=== PATIENT | female | born 1950 | race Caucasian/White ===

== ENCOUNTER → 2016-08-25 | Outpatient (CLI) | payer MEDICARE ==
[2016-08-25 11:26] LABS: HEMOGLOBIN 7.3 gm/dl (12.3-15.3); RED BLOOD COUNT 3.65 M/UL (4.00-5.10); WHITE BLOOD COUNT 6.3 K/UL (4.5-11.0)
== END ==
LOC: OPSV 09:30
PROVIDERS: Family Medicine
DX: D50.9 Iron deficiency anemia, unspecified (principal)
CPT/HCPCS: 36415; 36430; 85027; 86850; 86900; 86901; 86920; J7050; P9016

== ENCOUNTER → 2016-08-26 | Outpatient (CLI) | payer MEDICARE ==
[2016-08-26 15:04] LABS: WHITE BLOOD COUNT 7.4 K/UL (4.5-11.0)
[2016-08-26 15:09] LABS: HEMOGLOBIN 9.9 gm/dl (12.3-15.3); RED BLOOD COUNT 4.44 M/UL (4.00-5.10)
== END ==
LOC: LAB 14:16
PROVIDERS: Nurse Practitioner Family
DX: D50.9 Iron deficiency anemia, unspecified (principal)
CPT/HCPCS: 36415; 85027

== ENCOUNTER → 2016-10-29 | Outpatient (CLI) | payer MEDICARE ==
[2016-10-29 14:58] LABS: HEMOGLOBIN 9.9 gm/dl (12.3-15.3)
== END ==
LOC: LAB 14:06
PROVIDERS: Physician Assistant Surgical
DX: D64.9 Anemia, unspecified (principal)
CPT/HCPCS: 36415; 85014; 85018

== ENCOUNTER → 2020-06-26 | Outpatient (CLI) | payer MEDICARE ==
[~2020-06-26] MED LIST: ACID CONTROL150 MG PO; ALPRAZOLAM0.5 MG PO; BACTROBAN OINT22 GM EXT; CALCIUM 600 +1 EA10 PO; FERROUS GLUCON324 M1 PO; FORTEO 250250 MCG/ML SC; GLUCOPHAGE1000 MG PO; LEVOCETIRIZINE D5 MG PO; LEXAPRO10 MG PO; LOSARTAN POTASS25 MG PO; NORCO 10-325 T1 EACH PO; PANTOPRAZOLE SO20 MG PO; PERCOCET 10-321 EACH PO; RESTORIL 7.5 M7.5 MG PO; VITAMIN B-121000 MCG PO; VITAMIN D35000 UNI1 PO; ZOFRAN ODT 4 MG4 MG SL
== END ==
LOC: MAMO 15:19
DX: Z12.31 Encounter for screening mammogram for malignant neoplasm of breast (principal); Z78.0 Asymptomatic menopausal state
CPT/HCPCS: 77063; 77067

== ENCOUNTER → 2020-12-21 | Outpatient (CLI) | payer MEDICARE ==
[~2020-12-21] VITALS: Ht 154.9 cm; Wt 76.7 kg
== END ==
LOC: OPSV 13:57
DX: M80.08XA Age-related osteoporosis with current pathological fracture, vertebra(e), initial encounter for fracture (principal)
CPT/HCPCS: 96372

== ENCOUNTER → 2021-07-03 | Outpatient (CLI) | payer MEDICARE ==
[~2021-07-03] VITALS: Ht 154.9 cm; Wt 74.8 kg
== END ==
LOC: OPSV 14:00
DX: M80.08XA Age-related osteoporosis with current pathological fracture, vertebra(e), initial encounter for fracture (principal)
CPT/HCPCS: 96372

== ENCOUNTER → 2021-08-08 | Outpatient (CLI) | payer MEDICARE ==
[~2021-08-08] MED LIST changes: +FAMOTIDINE20 MG PO; +FLONASE; +PROLIA
[2021-08-08 11:04] LABS: HEMOGLOBIN 12.4 gm/dl (12.3-15.3); RED BLOOD COUNT 4.15 M/UL (4.00-5.10); WHITE BLOOD COUNT 7.2 K/UL (4.5-11.0)
[2021-08-08 11:24] LABS: BUN/CREATININE RATIO 17 (0-10)
== END ==
LOC: EDSTATUS 10:00 → OPSV2 10:00
PROVIDERS: Orthopaedic Surgery
DX: Z01.818 Encounter for other preprocedural examination (principal); M17.12 Unilateral primary osteoarthritis, left knee; E11.9 Type 2 diabetes mellitus without complications; R94.31 Abnormal electrocardiogram [ECG] [EKG]
CPT/HCPCS: 36415; 80048; 83036; 85027; 93005

== ENCOUNTER → 2021-08-21 | Outpatient (CLI) | payer MEDICARE ==
[~2021-08-21] MED LIST changes: +CYCLOBENZAPRINE10 MG PO; +ELIQUIS 2.5 MG2.5 MG PO
[2021-08-21 12:18] LABS: BUN/CREATININE RATIO 17 (0-10)
== END ==
LOC: LAB 10:52
PROVIDERS: Orthopaedic Surgery
DX: Z01.812 Encounter for preprocedural laboratory examination (principal)
CPT/HCPCS: 36415; 80048; 86850; 86900; 86901

== ENCOUNTER → 2021-09-09 | Outpatient (CLI) | payer MEDICARE | LOC: KOH-I 15:00 | DX: R22.42 Localized swelling, mass and lump, left lower limb (principal) | CPT/HCPCS: 93971 ==

== ENCOUNTER → 2021-11-14 | Outpatient (CLI) | payer MEDICARE | LOC: MAMO 11-05 13:30 | DX: Z12.31 Encounter for screening mammogram for malignant neoplasm of breast (principal); Z78.0 Asymptomatic menopausal state | CPT/HCPCS: 77063; 77067 ==

== ENCOUNTER → 2021-12-26 | Outpatient (CLI) | payer MEDICARE ==
[2021-12-26 12:43] LABS: HEMOGLOBIN 8.7 gm/dl (12.3-15.3); RED BLOOD COUNT 3.45 M/UL (4.00-5.10); WHITE BLOOD COUNT 7.2 K/UL (4.5-11.0)
[2021-12-26 13:02] LABS: BUN/CREATININE RATIO 17 (0-10)
[2021-12-27 08:14] LABS: HAPTOGLOBIN 146 mg/dL (42-346)
[2021-12-27 15:11] LABS: HEMATOCRIT 27.9 % (34.0-46.6)
== END ==
LOC: LAB 11:57
PROVIDERS: Internal Medicine Hematology & Oncology
DX: D64.9 Anemia, unspecified (principal); K90.9 Intestinal malabsorption, unspecified
CPT/HCPCS: 36415; 80053; 82607; 82728; 82747; 83010; 83540; 83550; 83615; 83921; 85025; 85045

== ENCOUNTER → 2022-01-08 | Outpatient (CLI) | payer MEDICARE | LOC: OPSV 13:00 | DX: M80.08XA Age-related osteoporosis with current pathological fracture, vertebra(e), initial encounter for fracture (principal) | CPT/HCPCS: 96372 ==

== ENCOUNTER → 2022-01-15 | Outpatient (CLI) | payer MEDICARE ==
[~2022-01-15] VITALS: Ht 157.5 cm; Wt 73.9 kg
== END ==
LOC: OPSV 11:57
DX: K90.9 Intestinal malabsorption, unspecified (principal)
CPT/HCPCS: 96365; J1756

== ENCOUNTER → 2022-01-31 | Outpatient (CLI) | payer MEDICARE ==
[~2022-01-31] VITALS: Ht 157.5 cm; Wt 73.9 kg
== END ==
LOC: OPSV 10:50
DX: D50.9 Iron deficiency anemia, unspecified (principal)
CPT/HCPCS: 96365; 96375; J1756; J2930

== ENCOUNTER → 2022-02-05 | Outpatient (CLI) | payer MEDICARE | LOC: RAD 12:39 | DX: J20.9 Acute bronchitis, unspecified (principal) | CPT/HCPCS: 71046 ==

== ENCOUNTER → 2022-02-06 | Outpatient (CLI) | payer MEDICARE ==
[~2022-02-06] VITALS: Ht 157.5 cm; Wt 73.9 kg
== END ==
LOC: OPSV 10:00
DX: D50.9 Iron deficiency anemia, unspecified (principal); K90.9 Intestinal malabsorption, unspecified
CPT/HCPCS: 96365; 96375; J1756; J2930

== ENCOUNTER → 2022-02-12 | Outpatient (CLI) | payer MEDICARE ==
[~2022-02-12] VITALS: Ht 157.5 cm; Wt 73.9 kg
== END ==
LOC: OPSV 11:56
DX: D50.9 Iron deficiency anemia, unspecified (principal); K90.9 Intestinal malabsorption, unspecified
CPT/HCPCS: 96365; J1756